=== PATIENT | female | born 1960 | race Two or more races ===

== ENCOUNTER 2018-05-09 20:06 | Emergency (ER) | payer BC ==
[~2018-05-09] VITALS: Ht 160 cm; Wt 82.3 kg
[2018-05-09] MEDS ORDERED: KETOROLAC 30 MG/1 ML IM ONE (20:30)
[2018-05-09] MEDS ORDERED: KETOROLAC 30 MG/1 ML ONE (20:50)
[2018-05-09] MEDS ORDERED: HYDROcodone/APAP 5/325 TABLET PO STA (22:27)
[2018-05-09] MEDS ORDERED: DIAZEPAM 5 MG TABLET PO ONE (22:30)
[2018-05-09] MEDS ORDERED: ONDANSETRON ODT 4 MG PO ONE (22:30)
[2018-05-09] MEDS ORDERED: HYDROcodone/APAP 5/325 TABLET ONE (22:35)
[2018-05-09] MEDS ORDERED: DIAZEPAM 5 MG TABLET ONE (22:35)
[2018-05-09] MEDS ORDERED: ONDANSETRON ODT 4 MG ONE (22:35)
--- NOTE | 2018-05-09 22:40 | NUR ---
PT REMEDICATED FOR PERSISTENT PAIN AND WORSENING TO L NECK WITH RADIATION DOWN L ARM. LAB IN TO DRAW, AWAITING CT.
[2018-05-09 23:02] LABS: ALBUMIN 3.8 g/dL (3.4-5.0); ANION GAP 5 mmol/L (5-15); BASOPHILS # (AUTO) 0.06 x10^3/uL (0-0.1); BASOPHILS % (AUTO) 1 % (0-1); CALCIUM 8.4 mg/dL (8.5-10.1); CHLORIDE 108 mmol/L (98-107); EOSINOPHILS # (AUTO) 0.08 x10^3/uL (0-0.4); EOSINOPHILS % (AUTO) 1 % (1-7); LYMPHOCYTES # (AUTO) 1.53 x10^3/uL (1-3.4); LYMPHOCYTES % (AUTO) 20 % (22-44); MD NO; MEAN CORPUSCULAR HEMOGLOBIN 31.2 pg (27.0-34.8); MEAN CORPUSCULAR HGB CONC 34.4 g/dL (32.4-35.8); MEAN CORPUSCULAR VOLUME 90.7 fL (80-100); MEAN PLATELET VOLUME 9.2 fL (7.4-10.4); MONOCYTES # (AUTO) 0.46 x10^3/uL (0.2-0.8); MONOCYTES % (AUTO) 6 % (2-9); NEUTROPHILS # (AUTO) 5.63 x10^3/uL (1.8-6.8); NEUTROPHILS % (AUTO) 73 % (42-75); PLATELET COUNT 227 x10^3/uL (130-400); RED BLOOD COUNT 4.29 x10^6/uL (3.82-5.3); RED CELL DISTRIBUTION WIDTH 12.3 % (9.6-15.2)
[2018-05-09 23:06] LABS: ALANINE AMINOTRANSFERASE 35 U/L (12-78); ALKALINE PHOSPHATASE 145 U/L (45-117); BILIRUBIN,TOTAL 0.5 mg/dL (0.2-1.0); CREATININE 0.86 mg/dL (0.55-1.02)
[2018-05-09 23:44] VITALS: BP 170/82
--- NOTE | 2018-05-10 00:05 | NUR ---
REPORT TO JULIENNE TUCKER
--- NOTE | 2018-05-10 00:11 | NUR ---
Patient/Caregiver given discharge instructions and they have confirmed that they understand the instructions. Patient ambulatory with steady gait.
== END 2018-05-10 00:13 | disposition home or self-care (01) ==
LOC: ED 23:59
DX: S16.1XXA Strain of muscle, fascia and tendon at neck level, initial encounter (principal); M54.12 Radiculopathy, cervical region; I10 Essential (primary) hypertension; E11.9 Type 2 diabetes mellitus without complications; E78.5 Hyperlipidemia, unspecified; X58.XXXA Exposure to other specified factors, initial encounter; Y93.89 Activity, other specified; Y92.89 Other specified places as the place of occurrence of the external cause; Y99.8 Other external cause status
CPT/HCPCS: 36415; 72125; 80053; 85025; 96372; 99284; J1885; J7512; Q0162